=== PATIENT | male | born 1990 | race Caucasian/White ===

== ENCOUNTER 2016-11-08 11:14 | Emergency (ER) | payer OTHER ==
--- NOTE | 2016-11-08 11:25 | ER Document Report ---
HPI - HPI Patient complains to provider of: forearm sores Onset: Other - Months Onset/Duration: Persistent Pain Level: 0 Context: 26-year-old male ex IV drug user until last Monday when he injected heroin anterior shoulders in [place], caught a ride with a Marine in [facility] to come to [place]. He is homeless and has [place] benefits. He is here because ex IV drug use sites have wounds that will not heal. He keeps picking the scabs off thinking he is getting rid of MRSA. No fever or chest pain. Associated Symptoms: None Exacerbated by: Denies Relieved by: Denies Similar symptoms previously: Yes Recently seen / treated by doctor: Yes - EMS had to revive him twice with Narcan last Monday in [place] - ROS ROS below otherwise negative: Yes Systems Reviewed and Negative: Yes All other systems reviewed and negative - DERM Skin Color: Normal Past Medical History - General Information source: Patient - Social History Smoking Status: Unknown if Ever Smoked Frequency of alcohol use: ex-alcoholic Drug Abuse: Heroin, Other - Methamphetamine Lives with: Homeless Family History: Reviewed & Not Pertinent Patient has suicidal ideation: No Patient has homicidal ideation: No - Medical History Medical History: Negative Renal/ Medical History: Denies: Hx Peritoneal Dialysis Surgical Hx: Negative Vertical Provider Document - CONSTITUTIONAL Agree With Documented VS: Yes - INFECTION CONTROL TRAVEL OUTSIDE OF THE [place] IN LAST 30 DAYS: No - HEENT HEENT: Normocephalic - NECK Neck: Supple - RESPIRATORY Respiratory: Breath Sounds Normal, No Respiratory Distress O2 Sat by Pulse Oximetry: 98 - CARDIOVASCULAR Cardiovascular: Regular Rate, Regular Rhythm - MUSCULOSKELETAL/EXTREMETIES Musculoskeletal/Extremeties: MAEW, FROM, Non-Tender - NEURO Level of Consciousness: Awake, Alert, Appropriate - DERM Integumentary: negative: Abscess Adult Front & Back Diagram: 1 - scabbed inflamed iv drug use sites 2 - same as #1 Course - Vital Signs Vital signs: Temp Pulse Resp BP Pulse Ox 97.8 F 101 H 18 140/74 H 98 11/08/16 11:22 11/08/16 11:22 11/08/16 11:22 11/08/16 11:22 11/08/16 11:22 Discharge - Discharge Clinical Impression: chronic inflammation due to scratching Condition: Good Disposition: HOME, SELF-CARE Instructions: Dressing Instructions for Open Wounds (OM), [facility] Additional Instructions: Continue going to AA meetings Information given to you about the [facility] Information given to you about the homeless retirement Information given to you about the [facility] Return to the emergency room any concerns Keep the scabbed wounds on her forearms covered with Vaseline after use use the Bactroban for 3 days. Stop picking them.
[2016-11-08] MEDS ORDERED: MUPIROCIN CALCIUM 2% CREAM 15 GM TP ONE (11:43)
[2016-11-08 12:32] VITALS: BP 132/74
== END 2016-11-08 12:20 | disposition home or self-care (01) ==
LOC: ER 11:14
DX: L08.89 Other specified local infections of the skin and subcutaneous tissue (principal); L98.9 Disorder of the skin and subcutaneous tissue, unspecified
CPT/HCPCS: 99283; J3490

== ENCOUNTER 2017-03-29 16:22 | Observation (INO) | payer OTHER ==
--- NOTE | 2017-03-29 18:42 | ER Document Report ---
ED General - General Mode of Arrival: Ambulatory - with [facility] TRAVEL OUTSIDE OF THE [place] IN LAST 30 DAYS: No - HPI Onset: Yesterday Onset/Duration: Gradual Quality of pain: Achy, Fullness, Pressure, Sharp <EDGARD LOOMIS - Last Filed: 03/29/17 19:59> <LAM MATOS - Last Filed: 03/29/17 21:56> - General Chief Complaint: Wound Infection Stated Complaint: POSSIBLE ALLERGIC REACTION Time Seen by Provider: 03/29/17 18:35 Notes: Patient is a 26 year old male in custody of the [facility] that presents to the emergency department today with complaints of left hand swelling and pain. Patient states that yesterday, just prior to being incarcerated, he injected heroin into his hand but "missed the vein". Patient admits to methamphetamine, heroin, and cocaine abuse in the past. Patient has extensive swelling and some pain to the left hand. Patient's motor function and sensation are intact distally. (EDGARD LOOMIS) - Related Data Allergies/Adverse Reactions: No Known Allergies Allergy (Verified 03/29/17 17:55) Past Medical History - General Information source: Patient - Social History Smoking Status: Current Every Day Smoker Cigarette use (# per day): Yes Chew tobacco use (# tins/day): No Frequency of alcohol use: None Drug Abuse: Cocaine, Heroin, Methamphetamine Lives with: Homeless - according to previous [facility] record Family History: Reviewed & Not Pertinent - Medical History Medical History: Negative Surgical Hx: Negative <EDGARD LOOMIS - Last Filed: 03/29/17 19:59> Review of Systems - Review of Systems Constitutional: No symptoms reported EENT: No symptoms reported Cardiovascular: No symptoms reported Respiratory: No symptoms reported Gastrointestinal: No symptoms reported Genitourinary: No symptoms reported Male Genitourinary: No symptoms reported Musculoskeletal: See HPI, Other - left hand swelling/pain Skin: No symptoms reported Hematologic/Lymphatic: No symptoms reported Neurological/Psychological: No symptoms reported -: Yes All other systems reviewed and negative <EDGARD LOOMIS - Last Filed: 03/29/17 19:59> Physical Exam <EDGARD LOOMIS - Last Filed: 03/29/17 19:59> <LAM MATOS - Last Filed: 03/29/17 21:56> - Vital signs Vitals: Temp Pulse Resp BP Pulse Ox 98 F 72 16 119/75 100 03/29/17 16:30 03/29/17 16:30 03/29/17 16:30 03/29/17 16:30 03/29/17 16:30 - Notes Notes: Physical Exam: General: Sleeping but arouses to voice, speech is somewhat mumbled/slurred when speaking. HEENT: Normocephalic. Atraumatic. PERRL. Extraocular movements intact. Oropharynx clear. Neck: Supple. Non-tender. Respiratory: No respiratory distress. Clear and equal breath sounds bilaterally. Cardiovascular: Regular rate and rhythm. Abdominal: Normal Inspection. Non-tender. No distension. Normal Bowel Sounds. Back: Non-tender. No deformity or step off. Extremities: Moves all four extremities. Upper extremities: Left hand has extensive swelling and erythema to the dorsal aspect of left hand which appears to originate between the 1st and 2nd metacarpal heads. Lower extremities: Normal inspection. No edema. Normal ROM. Neurological: Normal cognition. AAOx4. Normal speech. Psychological: Normal affect. Normal Mood. Skin: Warm. Dry. Normal color. (EDAGRD LOOMIS) Course - Laboratory Result Diagrams: 03/29/17 19:15 03/29/17 19:15 <EDGARD LOOMIS - Last Filed: 03/29/17 19:59> - Laboratory Result Diagrams: 03/29/17 19:15 03/29/17 19:15 - Diagnostic Test Radiology reviewed: Image reviewed, Reports reviewed - Ultrasound shows diffuse edema in the hand without abscess - Consults Dr. Hua Time consulted: 21:50 Consulted provider: will come to ER - Observation regular medical floor <LAM MATOS - Last Filed: 03/29/17 21:56> - Vital Signs Vital signs: Temp Pulse Resp BP Pulse Ox 98 F 72 16 119/75 100 03/29/17 16:30 03/29/17 16:30 03/29/17 16:30 03/29/17 16:30 03/29/17 16:30 Discharge <EDGARD LOOMIS - Last Filed: 03/29/17 19:59> - Discharge Admitting Provider: Hospitalist Unit Admitted: Medical Floor <LAM MATOS - Last Filed: 03/29/17 21:56> - Discharge Clinical Impression: Cellulitis of hand, left, IV drug abuse Condition: Stable Disposition: ADMITTED OBSERVATION Scribe Attestation: 03/29/17 21:56 I personally performed the services described in the documentation, reviewed and edited the documentation which was dictated to the scribe in my presence, and it accurately records my words and actions. (LAM MATOS) Scribe Documentation - Scribe Written by Christine:: Christine Pinto, 03/29/[id number] acting as scribe for :: Win <EDGARD LOOMIS - Last Filed: 03/29/17 19:59>
[2017-03-29] MEDS ORDERED: CEFTRIAXONE 1 GM/D5W RTU 1 GM/50 ML RTUPB IV ONE (18:47)
[2017-03-29] MEDS ORDERED: VANCOMYCIN HCL INJ 1000 MG VIAL IV ONE (18:48)
[2017-03-29 19:40] LABS: ABSOLUTE EOSINOPHILS # (AUTO) 0.1 10^3/uL (0.0-0.6); ABSOLUTE LYMPHOCYTES (AUTO) 1.7 10^3/uL (0.5-4.7); ABSOLUTE MONOCYTES (AUTO) 0.8 10^3/uL (0.1-1.4); ABSOLUTE NEUT (AUTO) 4.7 10^3/uL (1.7-8.2); BASOPHILS % (AUTO) 0.3 % (0-2); EOSINOPHILS % (AUTO) 1.9 % (0-6); HEMATOCRIT 42.7 % (37.9-51.0); HEMOGLOBIN 14.6 g/dL (13.5-17.0); HGB HCT DIFFERENCE 1.1; LYMPHOCYTES % (AUTO) 22.8 % (13-45); MEAN CORPUSCULAR HEMOGLOBIN 30.6 pg (27.0-33.4); MEAN CORPUSCULAR HGB CONC 34.2 g/dL (32.0-36.0); MEAN CORPUSCULAR VOLUME 89 fl (80-97); MONOCYTES % (AUTO) 10.9 % (3-13); RED BLOOD COUNT 4.77 10^6/uL (4.35-5.55); SEGMENTED NEUTROPHILS % (AUTO) 64.1 % (42-78); WHITE BLOOD COUNT 7.4 10^3/uL (4.0-10.5)
[2017-03-29 20:00] LABS: ALANINE AMINOTRANSFERASE 26 U/L (21-72); ALBUMIN 4.2 g/dL (3.5-5.0); ALKALINE PHOSPHATASE 64 U/L (38-126); ANION GAP 11 (5-19); ASPARTATE AMINO TRANSFERASE 17 U/L (17-59); BILIRUBIN,DIRECT 0.3 mg/dL (0.0-0.4); BILIRUBIN,TOTAL 0.9 mg/dL (0.2-1.3); BLOOD UREA NITROGEN 9 mg/dL (7-20); CALCIUM 9.7 mg/dL (8.4-10.2); CARBON DIOXIDE 25 mmol/L (22-30); CHLORIDE 103 mmol/L (98-107); CREATININE RESULT 0.99 mg/dL (0.52-1.25); GLUCOSE 87 mg/dL (75-110); TOTAL PROTEIN 7.5 g/dL (6.3-8.2)
--- NOTE | 2017-03-29 20:47 | RADIOLOGY REPORT (SQ) ---
EXAM DESCRIPTION: U/S EXTREMITY NONVASCULAR LTD COMPLETED DATE/TIME: 03/29/2017 8:34 pm REASON FOR STUDY: LEFT HAND, R/O ABSCESS COMPARISON: None. TECHNIQUE: Static and real time isabel scale ultrasound and color Doppler acquired in the left hand. LIMITATIONS: None. FINDINGS: No focal fluid collection to suggest abscess. Diffuse subcutaneous edema throughout the d orsum of the hand. OTHER:No other significant findings. IMPRESSION: No focal fluid collection to suggest abscess. Diffuse subcutaneous edema throughout the dorsum of the hand. TECHNICAL DOCUMENTATION: JOB ID: [id number] [employer]- All Rights Reserved
[2017-03-29 21:27] LABS: APPEARANCE,URINE CLEAR; BILIRUBIN,URINE NEGATIVE (NEGATIVE); GLUCOSE, URINE NEGATIVE (NEGATIVE); KETONES,URINE NEGATIVE (NEGATIVE); LEUKOCYTE ESTERASE,URINE NEGATIVE (NEGATIVE); NITRITE,URINE NEGATIVE (NEGATIVE); PROTEIN,URINE NEGATIVE (NEGATIVE); UROBILINOGEN,URINE NEGATIVE mg/dL (<2.0)
[2017-03-29] MEDS ORDERED: IPRATROPIUM/ALBUTEROL 0.5-2.5 MG/3 ML AMPUL NEB PRN (21:52)
[2017-03-29] MEDS ORDERED: ACETAMINOPHEN 325 MG TABLET PO PRN (21:52)
[2017-03-29] MEDS ORDERED: MAG HYDROX/AL HYDROX/SIMETH SUSP 30 ML UDCUP PO PRN (21:52)
[2017-03-29] MEDS ORDERED: VANCOMYCIN HCL 0 MG in DEXTROSE 5%-WATER 250 ML IV NR (22:00)
[2017-03-29] MEDS: HEPARIN SOD (PORCINE) 5,000 UNIT/ML 1 ML SYRINGE SUBCUT SCH (22:22)
[2017-03-30] MEDS: NORMAL SALINE 1000 ML 1,000 ML IV SCH ×2 (00:06→08:31)
[2017-03-30 05:45] LABS: ABSOLUTE EOSINOPHILS # (AUTO) 0.1 10^3/uL (0.0-0.6); ABSOLUTE LYMPHOCYTES (AUTO) 1.5 10^3/uL (0.5-4.7); ABSOLUTE MONOCYTES (AUTO) 0.5 10^3/uL (0.1-1.4); ABSOLUTE NEUT (AUTO) 3.6 10^3/uL (1.7-8.2); BASOPHILS % (AUTO) 0.2 % (0-2); EOSINOPHILS % (AUTO) 2.4 % (0-6); HEMATOCRIT 39.2 % (37.9-51.0); HEMOGLOBIN 13.8 g/dL (13.5-17.0); HGB HCT DIFFERENCE 2.2; LYMPHOCYTES % (AUTO) 25.2 % (13-45); MEAN CORPUSCULAR HGB CONC 35.2 g/dL (32.0-36.0); MEAN CORPUSCULAR VOLUME 88 fl (80-97); MONOCYTES % (AUTO) 9.3 % (3-13); RED BLOOD COUNT 4.45 10^6/uL (4.35-5.55); RED CELL DISTRIBUTION WIDTH 12.7 % (11.5-14.0); SEGMENTED NEUTROPHILS % (AUTO) 62.9 % (42-78); WHITE BLOOD COUNT 5.8 10^3/uL (4.0-10.5)
[2017-03-30] MEDS: HEPARIN SOD (PORCINE) 5,000 UNIT/ML 1 ML SYRINGE SUBCUT SCH ×3 (05:48→21:32)
--- NOTE | 2017-03-30 06:51 | PDOC H&P ---
History of Present Illness Admission Date/PCP: 03/29/17 21:52 Patient complains of: Left hand swelling History of Present Illness: ELENA JAMISON is a 26 year old male with a past medical history of's IV poly- substance abuse of marijuana, cocaine and methamphetamine who was in his usual state of health until approximately 24 hours prior to presentation. Patient is brought to the emergency room in custody of [facility]. Patient admits prior to arrest a failed attempt of IV injection of methamphetamine into subcutaneous tissue resulting in pain and swelling to the left hand which has worsened over the last 24 hours. Motor function, pulses and sensation intact some limited range of motion secondary to edema. Past Medical History Medical History: None Psychiatric Medical History: Reports: Substance Abuse Social History Information Source: Patient Lives with: Homeless - according to previous [facility] record Smoking Status: Current Every Day Smoker Frequency of Alcohol Use: None Hx Recreational Drug Use: Yes Drugs: Cocaine, Heroin, Methadone, Other - Methamphetamine Hx Prescription Drug Abuse: No - Advance Directive Resuscitation Status: Full Code Family History Family History: Arthritis, Hypertension Parental Family History Reviewed: Yes Children Family History Reviewed: Yes Sibling(s) Family History Reviewed.: Yes Medication/Allergy Home Medications: No Home Medications 11/08/16 Allergies/Adverse Reactions: No Known Allergies Allergy (Verified 03/29/17 17:55) Review of Systems Constitutional: ABSENT: chills, fever(s), headache(s), weight gain, weight loss Eyes: ABSENT: visual disturbances Ears: ABSENT: hearing changes Cardiovascular: ABSENT: chest pain, dyspnea on exertion, edema, orthropnea, palpitations Respiratory: ABSENT: cough, hemoptysis Gastrointestinal: ABSENT: abdominal pain, constipation, diarrhea, hematemesis, hematochezia, nausea, vomiting Genitourinary: ABSENT: dysuria, hematuria Musculoskeletal: ABSENT: joint swelling Integumentary: ABSENT: rash, wounds Neurological: ABSENT: abnormal gait, abnormal speech, confusion, dizziness, focal weakness, syncope Psychiatric: ABSENT: anxiety, depression, homidical ideation, suicidal ideation Endocrine: ABSENT: cold intolerance, heat intolerance, polydipsia, polyuria Hematologic/Lymphatic: ABSENT: easy bleeding, easy bruising Physical Exam Vital Signs: Temp Pulse Resp BP Pulse Ox 97.8 F 71 16 94/48 L 93 03/30/17 01:52 03/30/17 01:52 03/30/17 01:52 03/30/17 01:52 03/30/17 01:52 Intake & Output 03/28/17 03/29/17 03/30/17 11:59 11:59 11:59 Intake Total 480 Balance 480 Weight 102.05 kg General appearance: PRESENT: cooperative, disheveled, mild distress Head exam: PRESENT: atraumatic, normocephalic Eye exam: PRESENT: conjunctiva pink, EOMI, PERRLA. ABSENT: scleral icterus Ear exam: PRESENT: normal external ear exam Mouth exam: PRESENT: moist, tongue midline Neck exam: ABSENT: carotid bruit, JVD, lymphadenopathy, thyromegaly Respiratory exam: PRESENT: clear to auscultation alyson. ABSENT: rales, rhonchi, wheezes Cardiovascular exam: PRESENT: RRR. ABSENT: diastolic murmur, rubs, systolic murmur Pulses: PRESENT: normal dorsalis pedis pul Vascular exam: PRESENT: normal capillary refill GI/Abdominal exam: PRESENT: normal bowel sounds, soft. ABSENT: distended, guarding, mass, organolmegaly, rebound, tenderness Rectal exam: PRESENT: deferred Extremities exam: PRESENT: other - Generalized left hand swelling without localized joint or tendon point tenderness. No open ulcer or exudate Neurological exam: PRESENT: alert, awake, oriented to person, oriented to place , oriented to time, oriented to situation, CN II-XII grossly intact. ABSENT: motor sensory deficit Psychiatric exam: PRESENT: appropriate affect, normal mood. ABSENT: homicidal ideation, suicidal ideation Skin exam: PRESENT: dry, erythema, intact, warm. ABSENT: cyanosis, rash, urticaria, vesicles Results Laboratory Results: 03/30/17 04:47 03/30/17 04:47 WBC 5.8 RBC 4.45 Hgb 13.8 Hct 39.2 MCV 88 MCH 31.0 MCHC 35.2 RDW 12.7 Plt Count 190 Seg Neutrophils % 62.9 Lymphocytes % 25.2 Monocytes % 9.3 Eosinophils % 2.4 Basophils % 0.2 Absolute Neutrophils 3.6 Absolute Lymphocytes 1.5 Absolute Monocytes 0.5 Absolute Eosinophils 0.1 Absolute Basophils 0.0 Impressions: Extremity Ultrasound 03/29/17 18:46 IMPRESSION: No focal fluid collection to suggest abscess. Diffuse subcutaneous edema throughout the dorsum of the hand. Assessment & Plan - Diagnosis (1) Cellulitis of hand, left Is this a current diagnosis for this admission?: Yes Plan: Suspected early cellulitis empiric antibiotics with vancomycin and Rocephin initiated. Elevation. Follow-up CBC, consider orthopedic surgery consultation. (2) IV drug abuse Is this a current diagnosis for this admission?: Yes Plan: No evidence for withdrawal, supportive care consider mental health consultation. - Time Time Spent: 30 to 50 Minutes - Inpatient Certification Medical Necessity: Need Close Monitoring Due to Risk of Patient Decompensation
[2017-03-30] MEDS ORDERED: IBUPROFEN 800 MG TABLET PO PRN (07:28)
[2017-03-30] MEDS ORDERED: NORMAL SALINE 1000 ML 2,000 ML IV ONE (08:30)
[2017-03-30] MEDS ORDERED: NALOXONE HCL INJ/PF 0.4 MG/1 ML SDV IV ONE ×2 (08:30→11:30)
[2017-03-30 09:24] LABS: URINE BARBITURATES SCREEN NEGATIVE; URINE METHADONE SCREEN NEGATIVE; URINE PHENCYCLIDINE SCREEN NEGATIVE
[2017-03-30] MEDS ORDERED: CEFTRIAXONE 1 GM/D5W RTU 1 GM/50 ML RTUPB IV SCH ×2 (10:00→12:00)
[2017-03-30] MEDS: VANCOMYCIN HCL 1,500 MG in DEXTROSE 5%-WATER 250 ML IV SCH ×2 (10:44→17:42)
[2017-03-30 10:48] LABS: URINE OPIATES LOW UNCONFIRMED POSITIVE
--- NOTE | 2017-03-30 13:52 | PDOC PROGRESS REPORT ---
Subjective Progress Note for:: 03/30/17 Subjective:: Patient seen earlier today on morning rounds. Patient is seen with officer and nurse at bedside. Patient denies chest pain, shortness of breath, abdominal pain, nausea, vomiting , fevers, chills, diarrhea, constipation, headache, new onset weakness. Physical Exam Vital Signs: Temp Pulse Resp BP Pulse Ox 97.6 F 81 16 122/65 94 03/30/17 11:05 03/30/17 11:05 03/30/17 11:05 03/30/17 11:05 03/30/17 11:05 Intake & Output 03/29/17 03/30/17 03/31/17 06:59 06:59 06:59 Intake Total 480 Balance 480 Weight 102.05 kg Exam: General: Sleeping but able to be around, oriented x3 when awake, but lethargic, no acute respiratory distress HEENT: AT/NC, Pupils 3mm equal, round, minimally reactive to light, EOMI, oropharynx is slightly dry, pink, no scleral icterus, bilateral conjunctival injection Neck: No JVD, trachea midline Chest: Clear to auscultation bilaterally, no wheezes rhonchi or rales CV: Regular rate and rhythm, normal S1 and S2, no murmur, rub, or gallop Abdomen: Soft, nontender to palpation, nondistended, active bowel sounds; no rebound, rigidity, or guarding Extremities: No cyanosis, clubbing; +edema of left hand Musculoskeletal: left hand edematous and mild erythema without streaking Neuro: Cranial nerves II through XII are grossly intact without focal deficits; lethargic Psych: flat Results Laboratory Results: 03/30/17 04:47 03/30/17 04:47 WBC 5.8 RBC 4.45 Hgb 13.8 Hct 39.2 MCV 88 MCH 31.0 MCHC 35.2 RDW 12.7 Plt Count 190 Seg Neutrophils % 62.9 Lymphocytes % 25.2 Monocytes % 9.3 Eosinophils % 2.4 Basophils % 0.2 Absolute Neutrophils 3.6 Absolute Lymphocytes 1.5 Absolute Monocytes 0.5 Absolute Eosinophils 0.1 Absolute Basophils 0.0 03/30/17 04:47 Creatine Kinase 79 Impressions: Extremity Ultrasound 03/29/17 18:46 IMPRESSION: No focal fluid collection to suggest abscess. Diffuse subcutaneous edema throughout the dorsum of the hand. Assessment & Plan - Diagnosis (1) Cellulitis of hand, left Is this a current diagnosis for this admission?: Yes Plan: Likely a chemical irritation vs cellulitis persay. Continue vanc and rocephin and if improved tomorrow will dc back to shelter. Monitor cpk. Monitor for signs of compartment syndrome. Patient currently neurovascularly intact. (2) Opiate and narcotic poisoning Qualifiers: Encounter type: initial encounter Injury intent: accidental or unintentional Qualified Code(s): T40.601A - Poisoning by unspecified narcotics , accidental (unintentional), initial encounter Is this a current diagnosis for this admission?: Yes Plan: Have given patient narcan x2 with good response in blood pressure Monitor for withdrawal and will give clonidine if this occurs (3) Hypotension due to drugs Is this a current diagnosis for this admission?: Yes Plan: Improved with IVF and narcan (4) Cocaine abuse Is this a current diagnosis for this admission?: Yes (5) Marijuana abuse Is this a current diagnosis for this admission?: Yes (6) Amphetamine abuse Is this a current diagnosis for this admission?: Yes (7) Obesity (BMI 30.0-34.9) Is this a current diagnosis for this admission?: Yes (8) IV drug abuse Is this a current diagnosis for this admission?: Yes - Time Time Spent with patient: 15-24 minutes Medications reviewed and adjusted accordingly: Yes Anticipated discharge: Other Within: within 24 hours
[2017-03-30] MEDS ORDERED: MAG HYDROX/AL HYDROX/SIMETH SUSP 30 ML UDCUP PO PRN (14:30)
[2017-03-30] MEDS: NORMAL SALINE 1000 ML 1,000 ML IV PRN (21:34)
[2017-03-31] MEDS: VANCOMYCIN HCL 1,500 MG in DEXTROSE 5%-WATER 250 ML IV SCH (01:40)
[2017-03-31] MEDS: HEPARIN SOD (PORCINE) 5,000 UNIT/ML 1 ML SYRINGE SUBCUT SCH (06:16)
[2017-03-31] MEDS: NORMAL SALINE 1000 ML 1,000 ML IV PRN (06:18)
[2017-03-31 08:58] LABS: ABSOLUTE EOSINOPHILS # (AUTO) 0.1 10^3/uL (0.0-0.6); ABSOLUTE LYMPHOCYTES (AUTO) 1.2 10^3/uL (0.5-4.7); ABSOLUTE MONOCYTES (AUTO) 0.4 10^3/uL (0.1-1.4); ABSOLUTE NEUT (AUTO) 3.4 10^3/uL (1.7-8.2); BASOPHILS % (AUTO) 0.5 % (0-2); EOSINOPHILS % (AUTO) 2.5 % (0-6); HEMATOCRIT 40.1 % (37.9-51.0); HEMOGLOBIN 13.9 g/dL (13.5-17.0); HGB HCT DIFFERENCE 1.6; LYMPHOCYTES % (AUTO) 23.6 % (13-45); MEAN CORPUSCULAR HEMOGLOBIN 30.8 pg (27.0-33.4); MEAN CORPUSCULAR HGB CONC 34.5 g/dL (32.0-36.0); MEAN CORPUSCULAR VOLUME 89 fl (80-97); MONOCYTES % (AUTO) 7.2 % (3-13); RED BLOOD COUNT 4.49 10^6/uL (4.35-5.55); RED CELL DISTRIBUTION WIDTH 12.8 % (11.5-14.0); SEGMENTED NEUTROPHILS % (AUTO) 66.2 % (42-78); WHITE BLOOD COUNT 5.2 10^3/uL (4.0-10.5)
[2017-03-31] MEDS ORDERED: CLINDAMYCIN HCL 150 MG CAPSULE PO SCH (12:00)
[2017-03-31 13:07] VITALS: BP 116/57
--- NOTE | 2017-03-31 17:54 | PDOC DISCHARGE SUMMARY ---
General - Admit/Disc Date/PCP Admission Date/Primary Care Provider: 03/29/17 21:52 Discharge Date: 03/31/17 - Discharge Diagnosis (1) Cellulitis of hand, left Is this a current diagnosis for this admission?: Yes (2) Opiate and narcotic poisoning Is this a current diagnosis for this admission?: Yes (3) Hypotension due to drugs Is this a current diagnosis for this admission?: Yes (4) Cocaine abuse Is this a current diagnosis for this admission?: Yes (5) Marijuana abuse Is this a current diagnosis for this admission?: Yes (6) Amphetamine abuse Is this a current diagnosis for this admission?: Yes (7) Obesity (BMI 30.0-34.9) Is this a current diagnosis for this admission?: Yes (8) IV drug abuse Is this a current diagnosis for this admission?: Yes - Additional Information Resuscitation Status: Full Code Discharge Diet: Regular Discharge Activity: Activity As Tolerated Home Medications: Acidoph/L.bulg/Bif.b/S.thermop [Bacid Caplet] 1 tab PO DAILY #30 tablet Clindamycin HCl [Cleocin 150 mg Capsule] 300 mg PO Q6 #56 capsule 03/31/17 Ibuprofen [Motrin 800 mg Tablet] 800 mg PO Q8HP PRN #30 tablet 03/31/17 History of Present Illness History of Present Illness: ELENA JAMISON is a 26 year old male with a past medical history of's IV poly- substance abuse of marijuana, cocaine and methamphetamine who was in his usual state of health until approximately 24 hours prior to presentation. Patient is brought to the emergency room in custody of [facility]. Patient admits prior to arrest a failed attempt of IV injection of heroin into subcutaneous tissue resulting in pain and swelling to the left hand which has worsened over the last 24 hours. Motor function, pulses and sensation intact some limited range of motion secondary to edema. Hospital Course Hospital Course: Patient was initially placed on vancomycin and Rocephin. Patient was given IV fluids and Narcan for his hypotension which improved his hypotension. Patient' s pain was well-controlled with ibuprofen. Patient swelling somewhat improved over the first 24 hours and patient had very mild local erythema over the site of injection with no associated streaking. The remainder of his rules hospital course was unremarkable and he was discharged on oral clindamycin and ibuprofen for pain relief as well as Bacid. Physical Exam Vital Signs: Temp Pulse Resp BP Pulse Ox 97.8 F 83 12 116/57 L 96 03/31/17 13:04 03/31/17 13:04 03/31/17 13:04 03/31/17 13:04 03/31/17 13:04 Intake & Output 03/30/17 03/31/17 04/01/17 06:59 06:59 06:59 Intake Total 480 5362 Output Total 1000 Balance 480 4362 Weight 102.05 kg 104.6 kg Exam: General: A+O x3, no acute respiratory distress HEENT: AT/NC, PERRL, EOMI, oropharynx is slightly dry, pink, no scleral icterus , bilateral conjunctival injection Neck: No JVD, trachea midline Chest: Clear to auscultation bilaterally, no wheezes rhonchi or rales CV: Regular rate and rhythm, normal S1 and S2, no murmur, rub, or gallop Abdomen: Soft, nontender to palpation, nondistended, active bowel sounds; no rebound, rigidity, or guarding Extremities: No cyanosis, clubbing; +edema of left hand Musculoskeletal: left hand edematous and mild localized erythema without streaking Neuro: Cranial nerves II through XII are grossly intact without focal deficits; A+Ox3 Psych: normal mood and affect Results Laboratory Results: 03/31/17 08:45 03/31/17 08:45 WBC 5.2 RBC 4.49 Hgb 13.9 Hct 40.1 MCV 89 MCH 30.8 MCHC 34.5 RDW 12.8 Plt Count 203 Seg Neutrophils % 66.2 Lymphocytes % 23.6 Monocytes % 7.2 Eosinophils % 2.5 Basophils % 0.5 Absolute Neutrophils 3.4 Absolute Lymphocytes 1.2 Absolute Monocytes 0.4 Absolute Eosinophils 0.1 Absolute Basophils 0.0 03/30/17 04:47 Creatine Kinase 79 Impressions: Extremity Ultrasound 03/29/17 18:46 IMPRESSION: No focal fluid collection to suggest abscess. Diffuse subcutaneous edema throughout the dorsum of the hand. Qualifiers PATEINT BEING DISCHARGED WITH ANY OF THE FOLLOWING DIAGNOSIS?: No Plan Time Spent: Less than 30 Minutes
== END 2017-03-31 13:30 | disposition other institution (70) ==
LOC: ER 16:22 → EH 21:52 → UNDOADMOB 21:59 → EH 21:59 → 4N 23:15 → EH 23:15
PROVIDERS: ADMIT Internal Medicine; ATTEND Internal Medicine
DX: L03.114 Cellulitis of left upper limb (principal); T40.601A Poisoning by unspecified narcotics, accidental (unintentional), initial encounter; I95.2 Hypotension due to drugs; F14.10 Cocaine abuse, uncomplicated; F12.10 Cannabis abuse, uncomplicated; F15.10 Other stimulant abuse, uncomplicated; E66.9 Obesity, unspecified; Z59.0 Homelessness; Z68.34 Body mass index [BMI] 34.0-34.9, adult; F17.200 Nicotine dependence, unspecified, uncomplicated; Z82.49 Family history of ischemic heart disease and other diseases of the circulatory system
CPT/HCPCS: 99285; 96372; 96365; 96366; 96367; 36415 ×2; 87040; 82550; 85025 ×3; 80053; 81001; 80307; 76882; G0378 ×4; J1644 ×3; J2310; J7060 ×2; J7030 ×2; J3370 ×3; J0696 ×2

== ENCOUNTER 2018-02-11 21:02 | Emergency (ER) | payer OTHER ==
[2018-02-11] MEDS ORDERED: IBUPROFEN 800 MG TABLET PO ONE (21:48)
[2018-02-11] MEDS ORDERED: LIDOCAINE 1% INJ-PF (10 MG/ML) 30 ML SDV INJ ONE (21:48)
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
[2018-02-12 00:29] VITALS: BP 127/77
== END 2018-02-12 00:30 | disposition home or self-care (01) ==
LOC: ER 21:02
DX: S01.112A Laceration without foreign body of left eyelid and periocular area, initial encounter (principal); Y04.0XXA Assault by unarmed brawl or fight, initial encounter; Y92.149 Unspecified place in prison as the place of occurrence of the external cause; F17.200 Nicotine dependence, unspecified, uncomplicated
CPT/HCPCS: 99283; 12011; J3490